=== PATIENT | female | born 1950 | race Native Hawaiian/Other Pacific Islander ===

== ENCOUNTER 2016-12-24 10:20 | Outpatient (CLI) | payer OTHER | END 2016-12-24 19:08 | disposition home or self-care (01) | LOC: MAMMO 10:20 | DX: Z12.31 Encounter for screening mammogram for malignant neoplasm of breast (principal) | CPT/HCPCS: G0202-TC ==

== ENCOUNTER 2017-12-24 11:17 | Day surgery (SDC) | payer OTHER | END 2017-12-24 14:30 | disposition home or self-care (01) | LOC: OR 11:17 | PROC: 0DJD8ZZ Inspection of Lower Intestinal Tract, Via Natural or Artificial Opening Endoscopic (ICD-10-PCS; principal; 2017-12-24) | DX: K57.30 Diverticulosis of large intestine without perforation or abscess without bleeding (principal); K64.8 Other hemorrhoids; K92.1 Melena; Z12.11 Encounter for screening for malignant neoplasm of colon | CPT/HCPCS: J2001; J2704 ==

== ENCOUNTER 2017-12-26 09:25 | Outpatient (CLI) | payer OTHER | END 2017-12-26 22:13 | disposition home or self-care (01) | LOC: MAMMO 09:25 | DX: Z12.31 Encounter for screening mammogram for malignant neoplasm of breast (principal) ==

== ENCOUNTER 2020-01-26 09:56 | Outpatient (CLI) | payer OTHER ==
[2020-01-26 10:16] LABS: PLATELET COUNT 238 K/uL (152-353)
[2020-01-26 10:31] LABS: POTASSIUM 3.6 mmol/L (3.6-5.2)
== END 2020-01-26 21:50 | disposition home or self-care (01) ==
LOC: LAB 09:56
PROVIDERS: Registered Nurse
DX: I10 Essential (primary) hypertension (principal); E03.8 Other specified hypothyroidism
CPT/HCPCS: 36415; 80053; 80061; 84439; 84443; 85027

== ENCOUNTER 2020-02-01 15:22 | Outpatient (CLI) | payer OTHER | END 2020-02-01 23:56 | disposition home or self-care (01) | LOC: LAB 15:22 | DX: I10 Essential (primary) hypertension (principal); E03.8 Other specified hypothyroidism | CPT/HCPCS: 81000 ==

== ENCOUNTER 2020-02-29 13:31 | Outpatient (CLI) | payer OTHER | END 2020-02-29 22:33 | disposition home or self-care (01) | LOC: LAB 13:31 | DX: R05 Cough (principal) | CPT/HCPCS: 87635; G2023; U00003 ==

== ENCOUNTER 2021-06-26 10:56 | Outpatient (CLI) | payer OTHER | END 2021-06-26 21:20 | disposition home or self-care (01) | LOC: MAMMO 10:56 | PROVIDERS: ATTEND Nurse Practitioner | DX: Z12.31 Encounter for screening mammogram for malignant neoplasm of breast (principal) ==